=== PATIENT | female | born 1970 | race Caucasian/White ===

== ENCOUNTER 2016-06-27 10:37 | Emergency (ER) | payer OTHER ==
[~2016-06-27] VITALS: Ht 170.2 cm; Wt 113.4 kg
--- NOTE | 2016-06-27 11:18 | ED SKIN/ALLERGY COMPLAINT ---
History of Present Illness General Chief Complaint: Laceration Procedure Stated Complaint: LAC TO R HAND Source: patient Exam Limitations: no limitations Vital Signs & Intake/Output Vital Signs & Intake/Output ED Intake and Output 06/28 0000 06/27 1200 Intake Total Output Total Balance Patient 250 lb Weight Allergies Coded Allergies: NO KNOWN ALLERGIES (03/02/11) Triage Note: TRIAGE: 45 Y/O FEMALE PRESENTS C/O LAC TO RIGHT HAND WHILE WASHING DISHES. LAC FROM GLASS. ACTIVE BLEEDING NOTED. LAC 1 INCH IN LENGTH. LAST TETANUS 5-6 YEARS AGO. Triage Nurses Notes Reviewed? yes HPI: This patient is a 45-year-old female who presented to the emergency department today for evaluation of a laceration to her right fifth digit. The patient reported that she was washing dishes this morning and cut her finger on a glass. She reported that the pain is currently an 8 out of 10. It is throbbing and nonradiating. It has been constant since onset and worse with movement. No palliative factors. She denied any numbness or tingling in her extremity. The patient does not know when her last tetanus immunization was. She did not take any medication for the pain prior to arrival in the emergency department. (CARIN DURAN PA-C) Past History Travel History Traveled to [place] past 21 day No Medical History Any Pertinent Medical History? see below for history Surgical History Surgical History: non-contributory Psychosocial History What is your primary language Wallisian Tobacco Use: Current Daily Use Daily Tobacco Use Amount/Type: => 5 Cigarettes daily ETOH Use: occasional use Illicit Drug Use: denies illicit drug use Family History Hx Contributory? No (CARIN DURAN PA-C) Review of Systems Review of Systems Constitutional: Reports: no symptoms. EENTM: Reports: no symptoms. Respiratory: Reports: no symptoms. Cardiovascular: Reports: no symptoms. GI: Reports: no symptoms. Musculoskeletal: Reports: no symptoms. Skin: Reports: see HPI. Neurological/Psychological: Reports: no symptoms. All Other Systems: Reviewed and Negative (CARIN DURAN PA-C) Physical Exam Physical Exam General Appearance: well developed/nourished, no apparent distress, alert, awake Comments: Well-developed well-nourished person in no acute distress HEENT: Head normocephalic, moist mucous membranes Neck: Supple, no lymphadenopathy Back: Normal gait Respiratory: No respiratory distress. Speaking in full sentences Extremities: No edema, full range of motion Neuro: Alert and oriented x3 Psych: Mood affect normal, normal memory normal judgment. Skin: Warm and dry, no rash on exposed skin. Approximately 3 cm in length, irregular laceration to the lateral aspect of the right fifth digit with no foreign bodies retained in the wound, positive active bleeding, no surrounding erythema or edema, and mild tenderness to palpation around the wound site. (ROGER SIERRA,CARIN) Progress Differential Diagnosis: abscess/cellulitis, skin laceration, skin tear, skin avulsion, skin abrasion, tendon injury Plan of Care: Orders Procedure Date/time Status XRY-HAND, 3 View RIGHT 06/27 1050 Active Current Medications Sig/Xiomara Start time Last Medication Dose Stop Time Status Admin Tetanus/Diphtheria 0.5 ML ONCE ONE 06/27 1145 AC Toxoids Adsorbed 06/27 1146 (Decavac) Diagnostic Imaging: Viewed by Me: Radiology Read. Discussed w/RAD: Radiology Read. Radiology Impression: PATIENT: KATARZYNA PERSAUD PRESENT AGE: 45 PATIENT ACCOUNT NO: [id number] : 68 LOCATION: [facility] ORDERING PHYSICIAN: JESUS BARLOW APRN SERVICE DATE: 06/27/16 EXAM TYPE: RAD - XRY-HAND, RIGHT EXAMINATION: XR HAND, RIGHT CLINICAL INFORMATION: Laceration to the right hand, right 5th finger. Suspected retained foreign body. COMPARISON: None TECHNIQUE: AP, lateral, and oblique views of the right hand. FINDINGS: The bony alignment is intact. The cortices are intact. The articular margins, joint space appear unremarkable. Incidental note is, however, made of mild apparent widening of the scapholunate joint space measuring approximately 0.4 cm, suggestive of scapholunate ligamentous tear. No radiopaque foreign body. IMPRESSION: 1. No radiopaque foreign body and/or acute fracture dislocation. 2. Incidental note is made of apparent mild widening of the scapholunate joint space which may represent scapholunate ligamentous tear. Dedicated radiograph of the right wrist may be considered for further clarification. DICTATED BY: LYNSEY SHEA MD DATE/TIME DICTATED:06/27/161137 SPECIFICATION WRITER:ZAY DATE/ TIME TRANSCRIBED:06/27/161137 CONFIDENTIAL, DO NOT COPY WITHOUT APPROPRIATE AUTHORIZATION. <Electronically signed in Other Vendor System> SIGNED BY: LYNSEY SHEA MD 06/27/16 1433 (CARIN DURAN PA-C) Departure Departure Disposition: HOME OR SELF CARE Condition: Stable Clinical Impression Primary Impression: Laceration Referrals: ZAFAR CONNELLY (PCP/Family) Additional Instructions: Please keep the wound site clean and dry. You may reapply bacitracin to the wound daily over the next 3 days. Please use the splint provided to you to prevent bending of your finger at this may pullout some of the stitches. Please return to the emergency department in 10-12 days for wound check and suture removal. Return sooner for any worsening symptoms, spreading of redness around the wound site, pus drainage from the wound site, excessive pain, fevers, or for any other concerns. You may take [id number] Motrin or Tylenol for pain. Departure Forms: Customer Survey General Discharge Information (CARIN DURAN PA-C) PA/PASSENGER SERVICE MANAGER Co-Sign Statement Statement: ED Attending supervision documentation- [] I saw and evaluated the patient. I have also reviewed all the pertinent lab results and diagnostic results. I agree with the findings and the plan of care as documented in the PA's/PASSENGER SERVICE MANAGER's documentation. [X] I have reviewed the ED Record and agree with the PA's/PASSENGER SERVICE MANAGER's documentation. [] Additions or exceptions (if any) to the PAs/PASSENGER SERVICE MANAGER's note and plan are summarized below: [] (SANDRA VALDOVINOS,REN) Procedures Laceration/Wound Repair Laceration/Wound Repair: Wound Location: upper extremity (right fifth digit) Wound's Depth, Shape: irregular, subcutaneous Wound Length (cm): 3.5 Wound Explored: irrigated extensively Irrigated w/ Saline (ccs): 1000 Betadine Prep? Yes Anesthesia: 1% lidocaine Volume Anesthetic (ccs): 5 Wound Repaired With: sutures Suture Size/Type: 4:0 Number of Sutures: 10 Layer Closure? No Sterile Dressing Applied: Yes Splint Applied? Yes By Who? by me Type of Splint Applied: finger splint Sling Applied? No Tetanus Status: not up to date Progress: Patient tolerated the procedure well (CARIN DURAN PA-C)
--- NOTE | 2016-06-27 11:59 | RADIOLOGY REPORT ---
EXAMINATION: XR HAND, RIGHT CLINICAL INFORMATION: Laceration to the right hand, right 5th finger. Suspected retained foreign body. COMPARISON: None TECHNIQUE: AP, lateral, and oblique views of the right hand. FINDINGS: The bony alignment is intact. The cortices are intact. The articular margins, joint space appear unremarkable. Incidental note is, however, made of mild apparent widening of the scapholunate joint space measuring approximately 0.4 cm, suggestive of scapholunate ligamentous tear. No radiopaque foreign body. IMPRESSION: 1. No radiopaque foreign body and/or acute fracture dislocation. 2. Incidental note is made of apparent mild widening of the scapholunate joint space which may represent scapholunate ligamentous tear. Dedicated radiograph of the right wrist may be considered for further clarification.
[2016-06-27 13:04] VITALS: BP 134/63
== END 2016-06-27 13:11 ==
LOC: ERH 10:37
DX: S61.216A Laceration without foreign body of right little finger without damage to nail, initial encounter (principal); W25.XXXA Contact with sharp glass, initial encounter; Y93.G1 Activity, food preparation and clean up; Y92.9 Unspecified place or not applicable
CPT/HCPCS: 73130-RT; 90471; 90714

== ENCOUNTER 2016-07-10 18:33 | Emergency (ER) | payer OTHER ==
[~2016-07-10] VITALS: Ht 170.2 cm; Wt 113.4 kg
[2016-07-10 18:53] VITALS: BP 138/81
--- NOTE | 2016-07-10 19:19 | ED ANIMAL BITE/WOUND CHECK ---
History of Present Illness General Chief Complaint: Suture Removal/Wound Recheck Stated Complaint: PT IS HERE FOR SUTURE REMOVAL Source: patient Exam Limitations: no limitations Vital Signs & Intake/Output Vital Signs & Intake/Output Vital Signs Date Time Temp Pulse Resp B/P B/P Pulse O2 O2 Flow FiO2 Mean Ox Delivery Rate 07/10 1853 95.9 79 20 138/81 98 Room Air Room Air ED Intake and Output 07/11 0000 07/10 1200 Intake Total Output Total Balance Patient 250 lb Weight Weight Reported by Patient Measurement Method Allergies Coded Allergies: NO KNOWN ALLERGIES (03/02/11) Triage Note: SUTURE REMOVAL (#10) FROM RIGHT PINKY FINGER. Triage Nurses Notes Reviewed? yes HPI: 45 yo F presenting for suture removal. 10 days ago patient cut right pinky finger on broken glass, laceration repaired in this emergency department, patient returns today for removal of stitches. Denies increased pain, redness, swelling, or purulent drainage at wound site. Denies fevers, chills, or systemic symptoms. (DELPHINE MCCOY MD) Past History Travel History Traveled to [place] past 21 day No Medical History Any Pertinent Medical History? see below for history Neurological: NONE EENT: NONE Cardiovascular: NONE Respiratory: NONE Gastrointestinal: NONE Hepatic: NONE Renal: NONE Musculoskeletal: NONE Psychiatric: NONE Endocrine: hypothyroidism Blood Disorders: NONE Cancer(s): NONE SECURITY ASSISTANT/Reproductive: NONE Tetanus Vaccine: 06/27/16 Surgical History Surgical History: non-contributory Psychosocial History What is your primary language Upper Sorbian Tobacco Use: Current Daily Use Daily Tobacco Use Amount/Type: => 5 Cigarettes daily ETOH Use: occasional use Illicit Drug Use: denies illicit drug use Family History Hx Contributory? No (DELPHINE MCCOY MD) Review of Systems Review of Systems Constitutional: Reports: no symptoms. EENTM: Reports: no symptoms. Respiratory: Reports: no symptoms. Cardiovascular: Reports: no symptoms. GI: Reports: no symptoms. Genitourinary: Reports: no symptoms. Musculoskeletal: Reports: no symptoms. Skin: Reports: no symptoms. Neurological/Psychological: Reports: no symptoms. Hematologic/Endocrine: Reports: no symptoms. Immunologic/Allergic: Reports: no symptoms. All Other Systems: Reviewed and Negative (DELPHINE MCCOY MD) Physical Exam Physical Exam General Appearance: well developed/nourished, mild distress Head: atraumatic Eyes: Bilateral: PERRL, EOMI. Ears, Nose, Throat: normal pharynx, normal ENT inspection, hearing grossly normal Neck: normal inspection, supple Respiratory: normal breath sounds Cardiovascular: regular rate/rhythm Gastrointestinal: soft, non-tender Back: normal inspection Extremities: normal range of motion Comments: Right Hand: Laceration sites to right volar 5th finger, clean, dry, non- erythematous (DELPHINE MCCOY MD) Progress Differential Diagnosis: Sutures Plan of Care: Physician MDM: 45-year-old female presenting for suture removal from laceration site on right fifth finger sustained 10 days ago. Laceration site shows good primary closure with adequate approximation of wound edges, no disruption of wound margins with lateral tension. Sutures removed without difficulty. Discharged with return precautions. The plan of care was discussed with the patient expressed agreement and understanding. (NADINE VALDOVINOS,DELPHINE) Departure Departure Disposition: HOME OR SELF CARE Condition: Stable Clinical Impression Primary Impression: Visit for suture removal Referrals: ZAFAR CONNELLY (PCP/Family) Additional Instructions: Keep laceration site clean, dry. Follow up with your primary care doctor as neccessary. Return to the ED for any new, worsening, or concerning symptoms. Departure Forms: Customer Survey General Discharge Information (DELPHINE MCCOY MD) PA/SUEDING AND BUFFING MACHINE OPERATOR Co-Sign Statement Statement: ED Attending supervision documentation- [] I saw and evaluated the patient. I have also reviewed all the pertinent lab results and diagnostic results. I agree with the findings and the plan of care as documented in the PA's/SUEDING AND BUFFING MACHINE OPERATOR's documentation. [X] I have reviewed the ED Record and agree with the PA's/SUEDING AND BUFFING MACHINE OPERATOR's documentation. [] Additions or exceptions (if any) to the PAs/SUEDING AND BUFFING MACHINE OPERATOR's note and plan are summarized below: [] (POOJA VILLARREAL DO) ED Attending Observation Initial Observation Note: I have seen and personally examined KATARZYNA PERSAUD on 07/11/16 at 0021. I agree with the current emergency department documentation. The disposition (admission or discharge) is uncertain at this time, she needs a period of observation for the following reason(s): The ED Nurse caring for this patient has been personally informed as to what the patient is being observed for. (DELPHINE MCCOY MD)
== END 2016-07-10 19:44 ==
LOC: ERH 18:33
DX: S61.216D Laceration without foreign body of right little finger without damage to nail, subsequent encounter (principal)
CPT/HCPCS: 99281